=== PATIENT | female | born 1995 | race Caucasian/White ===

== ENCOUNTER 2016-08-14 17:49 | Outpatient (CLI) | payer OTHER ==
[~2016-08-14 17:49] MED LIST: BACTERICIN30 GM TP; BIPOLAR MED PO; BUPROPION XL150 MG PO; CIPRO500 MG PO; DESYREL100 MG PO; DIVALPROEX SOD250 M1 PO; FLOVENT DISKUS1 DIS1 IH; KEFLEX500 MG PO; LEXAPRO10 MG PO; MACROBID100 MG PO; METHADONE10 MG/1 M1 PO; Methadone PO; NAPROXEN500 MG PO; PROZAC20 MG PO; QUETIAPINE FUMA25 MG PO; QUETIAPINE FUMA50 MG; SEROQUEL100 MG; SEROQUEL100 MG PO; SLEEP AID PO; SUBOXONE 8 MG-1 EAC2 SL; SUBUTEX PO; TRAZODONE HCL50 MG PO; ULTRAM50 MG PO; XANAX; XANAX0.25 MG PO; ZIPRASIDONE HCL20 MG PO; ZOFRAN ODT4 MG PO; methadone PO; risperDAL PO
[2016-08-14 18:08] VITALS: BP 107/56
== END 2016-08-14 19:14 | disposition home or self-care (01) ==
LOC: LDRP-OP 17:49 → 2WEST 17:50 → LDRP-OP 11-17 20:14
DX: Z03.79 Encounter for other suspected maternal and fetal conditions ruled out (principal); W10.9XXA Fall (on) (from) unspecified stairs and steps, initial encounter; O99.323 Drug use complicating pregnancy, third trimester; F11.20 Opioid dependence, uncomplicated; Z3A.30 30 weeks gestation of pregnancy; O99.333 Smoking (tobacco) complicating pregnancy, third trimester; F17.200 Nicotine dependence, unspecified, uncomplicated; Y99.8 Other external cause status
CPT/HCPCS: 59025; G0378

== ENCOUNTER 2016-09-19 00:54 | Emergency (ER) | payer OTHER ==
[~2016-09-19] VITALS: Ht 167.6 cm; Wt 92.4 kg
[2016-09-19 01:14] LABS: HEMATOCRIT 32.4 % (36.0-46.0); MCH 28.7 PG (29.0-34.0); MCHC 33.6 G/DL (30.0-36.0); MCV 85.3 FL (83-99); PLATELET COUNT 217 K/uL (156-360); RBC DIS.WIDTH-CV 12.5 % (11.8-14.6); RBC DIS.WIDTH-SD 38.4 % (39-53); WHITE BLOOD COUNT 8.8 K/uL (4.1-10.2)
[2016-09-19 01:25] LABS: CHLORIDE 104 mEq/L (99-109); POTASSIUM 3.6 mEq/L (3.7-5.4); SODIUM 139 mEq/L (136-147)
[2016-09-19 01:27] LABS: GLUCOSE 98 mg/dL (70-99)
[2016-09-19 01:28] LABS: ANION GAP 12 MEQ/L (2-14)
[2016-09-19 01:29] LABS: TOTAL BILIRUBIN 0.2 mg/dL (0.0-1.0)
[2016-09-19 01:30] LABS: ALKALINE PHOSPHATASE 89 IU/L (3-129)
[2016-09-19 01:31] LABS: GFR ESTIMATE (CALCULATED) > 59 mL/min/
[2016-09-19 01:32] LABS: DIRECT BILIRUBIN 0.1 mg/dL (0.0-0.3); UREA NITROGEN (BUN) 9 mg/dL (9-23)
[2016-09-19 01:34] LABS: LIPASE 30 U/L (1.0-51.0)
[2016-09-19 03:16] VITALS: BP 135/73
== END 2016-09-19 03:16 | disposition home or self-care (01) ==
LOC: EME 00:54
PROVIDERS: Emergency Medicine
DX: O21.2 Late vomiting of pregnancy (principal); R19.7 Diarrhea, unspecified; O99.333 Smoking (tobacco) complicating pregnancy, third trimester; F11.99 Opioid use, unspecified with unspecified opioid-induced disorder; F17.200 Nicotine dependence, unspecified, uncomplicated
CPT/HCPCS: 80048; 80076; 81003; 83690; 85027; 99281; 99285; J2405; J7030

== ENCOUNTER 2016-10-06 12:46 | Outpatient (CLI) | payer OTHER ==
[2016-10-06 13:28] VITALS: BP 103/59
[2016-10-06 14:45] LABS: ADD MIUA? YES; BILIRUBIN NEGATIVE; BLOOD NEGATIVE; GLUCOSE (STRIP) NEGATIVE; KETONES 5; LEUKOCYTES SMALL; NITRITE NEGATIVE; PROTEIN (STRIP) 30; SPECIFIC GRAVITY 1.031 (1.000-1.030)
[2016-10-06 14:46] LABS: COLOR DK YELLOW ((YELLOW))
[2016-10-06 14:51] VITALS: BP 100/46
[2016-10-06 15:19] LABS: BACTERIA 2+ /HPF; EPITHELIAL CELLS 2+ /HPF; RED BLOOD CELLS 0-5 /HPF (0-5); UCUL ADDED? YES
[2016-10-06 15:21] LABS: CASTS NONE SEEN /LPF; CRYSTALS NONE SEEN; MUCUS 3+ /LPF
[2016-10-06 16:01] VITALS: BP 102/58
[2016-10-06] MEDS ORDERED: METHADONE H5 MG/5 ML PO (17:19)
== END 2016-10-06 17:40 | disposition home or self-care (01) ==
LOC: LDRP-OP → 2WEST 12:47 → LDRP-OP 11-17 21:54
PROVIDERS: Advanced Practice Midwife
DX: O47.1 False labor at or after 37 completed weeks of gestation (principal); Z3A.38 38 weeks gestation of pregnancy
CPT/HCPCS: 59025; 81003; 87086; G0378

== ENCOUNTER 2016-10-15 14:55 | Inpatient (IN) | payer OTHER ==
[~2016-10-15] VITALS: Ht 167.6 cm; Wt 88.9 kg
[2016-10-15] VITALS (15 sets, daily range): BP systolic 99–121; BP diastolic 54–76
[~2016-10-15 14:55] MED LIST changes: +METHADONE H5 MG/5 ML PO
[2016-10-15] MEDS ORDERED: KLONOPIN1 MG PO (15:32)
[2016-10-15 15:44] LABS: EOSINOPHIL (%) 0.9 % (0-5); EOSINOPHIL COUNT 0.1 K/uL (0-0.3); HEMATOCRIT 33.8 % (36.0-46.0); IMMATURE GRANULOCYTE (%) 0.6 % (0.0-0.7); IMMATURE GRANULOCYTE COUNT 0.1 K/uL; INSTRUMENT ABS NEUTROPHIL CT 7.1 K/uL; LYMPHOCYTE COUNT 1.6 K/uL (1.0-2.8); MCH 28.2 PG (29.0-34.0); MCHC 32.8 G/DL (30.0-36.0); MEAN PLAT.VOLUME 9.7 uM^3 (9.5-12.4); MONOCYTE (%) 7.5 % (3-12); MONOCYTE COUNT 0.7 K/uL (0-0.8); NEUTROPHIL (%) 74.3 % (45-76); NEUTROPHIL COUNT 7.1 K/uL (1.8-6.4); PLATELET COUNT 226 K/uL (156-360); RBC DIS.WIDTH-CV 12.6 % (11.8-14.6); RBC DIS.WIDTH-SD 39.5 % (39-53); RED BLOOD COUNT 3.93 M/uL (3.80-5.20); WHITE BLOOD COUNT 9.5 K/uL (4.1-10.2)
[2016-10-15 16:51] LABS: AMPHETAMINES QUANT VALUE 0 NG/ML; BARBITUATES QUANT VALUE 0 NG/ML; BENZODIAZEPINES QUANT VALUE 0 NG/ML; BENZODIAZEPINES, URINE SCREEN Negative (200 ng/mL); OPIATES QUANTITATIVE VALUE 0 NG/ML; PHENCYCLIDINE QUANT VALUE 0 NG/ML
[2016-10-16 06:09] LABS: EOSINOPHIL (%) 1.1 % (0-5); EOSINOPHIL COUNT 0.1 K/uL (0-0.3); HEMATOCRIT 30.5 % (36.0-46.0); IMMATURE GRANULOCYTE (%) 0.7 % (0.0-0.7); IMMATURE GRANULOCYTE COUNT 0.1 K/uL; INSTRUMENT ABS NEUTROPHIL CT 6.4 K/uL; LYMPHOCYTE COUNT 1.9 K/uL (1.0-2.8); MCHC 32.1 G/DL (30.0-36.0); MCV 87.1 FL (83-99); MEAN PLAT.VOLUME 10.1 uM^3 (9.5-12.4); MONOCYTE (%) 8.4 % (3-12); MONOCYTE COUNT 0.8 K/uL (0-0.8); NEUTROPHIL (%) 69.3 % (45-76); NEUTROPHIL COUNT 6.4 K/uL (1.8-6.4); PLATELET COUNT 205 K/uL (156-360); RBC DIS.WIDTH-CV 12.7 % (11.8-14.6); RBC DIS.WIDTH-SD 40.2 % (39-53); WHITE BLOOD COUNT 9.2 K/uL (4.1-10.2)
[2016-10-16 10:00] LABS: ADD MEDTOX COMMENT Y; AMPHETAMINE NEGATIVE (500 ng/mL); BARBITURATES NEGATIVE (200 ng/mL); BENZODIAZEPINES PRESUMPTIVE POSITIVE (150 ng/mL); COCAINE NEGATIVE (150 ng/mL); INTERNAL CONTROLS VALID? YES; METHADONE PRESUMPTIVE POSITIVE (200 ng/mL); METHAMPHETAMINE NEGATIVE (500 ng/mL); OPIATES (MORPHINE) NEGATIVE (100 ng/mL); OXYCODONE NEGATIVE (100 ng/mL); PHENCYCLIDINE NEGATIVE (25 ng/mL); PROPOXYPHENE NEGATIVE (300 ng/mL); THC CANNABINOIDS PRESUMPTIVE POSITIVE (50 ng/mL); TRICYCLIC ANTIDEPRESSANTS NEGATIVE (300 ng/mL)
[2016-10-16 10:48] LABS: BENZODIAZEPINES QUANT VALUE 0 NG/ML; BENZODIAZEPINES, URINE SCREEN Negative (200 ng/mL)
[2016-10-16 22:55] VITALS: BP 119/67
[2016-10-17 07:22] VITALS: BP 121/77
[2016-10-17] MEDS ORDERED: DOCUSATE SODIU100 MG PO (09:16)
[2016-10-17] MEDS ORDERED: IBUPROFEN800 MG PO (09:16)
[2016-10-17] MEDS ORDERED: HEMOCYTE324 MG PO (09:17)
[2016-10-17 15:23] VITALS: BP 110/66
== END 2016-10-17 18:25 | disposition home or self-care (01) | DRG 775 ==
LOC: LDRP-OP 14:55 → 2WEST 14:56 → LDRP-OP 11-17 18:37
PROVIDERS: Advanced Practice Midwife; Obstetrics & Gynecology
DX: O70.0 First degree perineal laceration during delivery (principal); O99.324 Drug use complicating childbirth; F11.20 Opioid dependence, uncomplicated; Z3A.39 39 weeks gestation of pregnancy; Z37.0 Single live birth; O99.02 Anemia complicating childbirth; D62 Acute posthemorrhagic anemia; O99.344 Other mental disorders complicating childbirth; F31.9 Bipolar disorder, unspecified; F41.9 Anxiety disorder, unspecified; O99.334 Smoking (tobacco) complicating childbirth; F17.200 Nicotine dependence, unspecified, uncomplicated; O26.03 Excessive weight gain in pregnancy, third trimester; O36.5930 Maternal care for other known or suspected poor fetal growth, third trimester, not applicable or unspecified; O22.03 Varicose veins of lower extremity in pregnancy, third trimester
CPT/HCPCS: 80306 90; 84999; 85025; 88307; C1755; J2795; J3010; J7120

== ENCOUNTER 2017-12-06 09:00 | Outpatient (CLI) | payer OTHER ==
[~2017-12-06] VITALS: Ht 167.6 cm; Wt 74.8 kg
[~2017-12-06 09:00] MED LIST changes: +DOCUSATE SODIU100 MG PO; +HEMOCYTE324 MG PO; +IBUPROFEN800 MG PO; +KLONOPIN1 MG PO
[2017-12-06 09:20] VITALS: BP 111/57
[2017-12-06 09:24] VITALS: BP 101/59
[2017-12-06 10:10] LABS: SOURCE SWAB
[2017-12-06 10:26] LABS: BASOPHIL (%) 0.1 % (0-1); EOSINOPHIL (%) 1.1 % (0-5); EOSINOPHIL COUNT 0.1 K/uL (0-0.3); HEMATOCRIT 31.8 % (36.0-46.0); HEMOGLOBIN 10.6 G/DL (11.9-15.5); IMMATURE GRANULOCYTE (%) 0.7 % (0.0-0.7); LYMPHOCYTE COUNT 1.4 K/uL (1.0-2.8); MCH 29.7 PG (29.0-34.0); MCHC 33.3 G/DL (30.0-36.0); MCV 89.1 FL (83-99); MONOCYTE (%) 6.7 % (3-12); MONOCYTE COUNT 0.6 K/uL (0-0.8); NEUTROPHIL (%) 74.4 % (45-76); NEUTROPHIL COUNT 6.1 K/uL (1.8-6.4); PLATELET COUNT 181 K/uL (156-360); RBC DIS.WIDTH-CV 13.2 % (11.8-14.6); RBC DIS.WIDTH-SD 42.9 % (39-53); RED BLOOD COUNT 3.57 M/uL (3.80-5.20); WHITE BLOOD COUNT 8.2 K/uL (4.1-10.2)
[2017-12-06 10:50] LABS: ALKALINE PHOSPHATASE 57 IU/L (3-129); ALT (GPT) 8 IU/L (3-49); AMYLASE 26 IU/L (1-118); AST (GOT) 10 IU/L (2-34); CHLORIDE 108 MEQ/L (99-109); CREATININE 0.4 MG/DL (0.6-1.3); GFR ESTIMATE (CALCULATED) > 59 mL/min/; GLUCOSE 111 mg/dL (70-99); LIPASE 25 U/L (1.0-51.0); POTASSIUM 3.7 MEQ/L (3.7-5.4); SODIUM 138 MEQ/L (136-147); TOTAL BILIRUBIN 0.2 MG/DL (0.0-1.0); TOTAL PROTEIN 5.3 G/DL (6.4-8.3); UREA NITROGEN (BUN) 8 mg/dL (9-23)
[2017-12-06 11:25] LABS: AMPHETAMINE NEGATIVE (500 ng/mL); BARBITURATES NEGATIVE (200 ng/mL); BENZODIAZEPINES NEGATIVE (150 ng/mL); BUPRENORPHINE NEGATIVE (10 ng/mL); COCAINE PRESUMPTIVE POSITIVE (150 ng/mL); METHADONE PRESUMPTIVE POSITIVE (200 ng/mL); METHAMPHETAMINE NEGATIVE (500 ng/mL); OPIATES (MORPHINE) PRESUMPTIVE POSITIVE (100 ng/mL); OXYCODONE NEGATIVE (100 ng/mL); PHENCYCLIDINE NEGATIVE (25 ng/mL); PROPOXYPHENE NEGATIVE (300 ng/mL); THC CANNABINOIDS PRESUMPTIVE POSITIVE (50 ng/mL); TRICYCLIC ANTIDEPRESSANTS NEGATIVE (300 ng/mL)
[2017-12-06 12:13] LABS: ANTI-HIV (AIDS STAT TEST) NONREACTIVE
[2017-12-06 12:14] LABS: HEPATITIS B SURFACE ANTIGEN Nonreactive; HIV-1/2 AB/AG COMBO Nonreactive
[2017-12-06 21:21] LABS: CANDIDA DNA PROBE NEGATIVE; GARDNERELLA DNA PROBE NEGATIVE; TRICHOMONAS DNA PROBE NEGATIVE
[2017-12-07 10:08] LABS: TREPONEMA ANTIBODY NEGATIVE (NEGATIVE)
[2017-12-08 18:55] LABS: HCV RNA (IU/mL) <15 IU/mL (()); HCV RNA (LOG IU/mL) <1.18 (())
== END 2017-12-06 12:05 | disposition home or self-care (01) ==
LOC: LDRP-OP 09:00 → 2WEST 09:01 → LDRP-OP 04-10 15:42
PROVIDERS: Advanced Practice Midwife; Obstetrics & Gynecology Obstetrics
DX: O26.892 Other specified pregnancy related conditions, second trimester (principal); R10.9 Unspecified abdominal pain; O99.322 Drug use complicating pregnancy, second trimester; F14.10 Cocaine abuse, uncomplicated; F12.10 Cannabis abuse, uncomplicated; F11.10 Opioid abuse, uncomplicated; Z3A.26 26 weeks gestation of pregnancy
CPT/HCPCS: 59025; 80053; 82150; 82731; 83036; 83690; 84999; 85025; 86762; 86780; 86850; 86900; 86901; 87086; 87340; 87389; 87480; 87491; 87510; 87522 90; 87591; 87641; 87660; G0378

== ENCOUNTER 2018-01-23 23:34 | Outpatient (CLI) | payer OTHER ==
[~2018-01-23] VITALS: Ht 167.6 cm; Wt 95.5 kg
[2018-01-23 23:49] VITALS: BP 114/58
[2018-01-23] MEDS ORDERED: DOLOPHINE HCL5 MG PO (23:57)
[2018-01-24 00:48] LABS: AMPHETAMINE NEGATIVE (500 ng/mL); BARBITURATES NEGATIVE (200 ng/mL); BENZODIAZEPINES NEGATIVE (150 ng/mL); BUPRENORPHINE NEGATIVE (10 ng/mL); COCAINE NEGATIVE (150 ng/mL); METHADONE PRESUMPTIVE POSITIVE (200 ng/mL); METHAMPHETAMINE NEGATIVE (500 ng/mL); OPIATES (MORPHINE) NEGATIVE (100 ng/mL); OXYCODONE NEGATIVE (100 ng/mL); PHENCYCLIDINE NEGATIVE (25 ng/mL); PROPOXYPHENE NEGATIVE (300 ng/mL); THC CANNABINOIDS NEGATIVE (50 ng/mL); TRICYCLIC ANTIDEPRESSANTS NEGATIVE (300 ng/mL)
== END 2018-01-24 00:45 | disposition home or self-care (01) ==
LOC: LDRP-OP 23:34 → 2WEST 23:35 → LDRP-OP 04-10 12:12
PROVIDERS: Advanced Practice Midwife
DX: O99.89 Other specified diseases and conditions complicating pregnancy, childbirth and the puerperium (principal); Z3A.33 33 weeks gestation of pregnancy; O99.333 Smoking (tobacco) complicating pregnancy, third trimester; R10.31 Right lower quadrant pain; O98.412 Viral hepatitis complicating pregnancy, second trimester; B18.2 Chronic viral hepatitis C
CPT/HCPCS: 59025; G0378